=== PATIENT | male | born 1980 | race Caucasian/White ===

== ENCOUNTER 2018-02-19 13:15 | Day surgery (SDC) | payer BC ==
[~2018-02-19] VITALS: Ht 188 cm; Wt 93.4 kg
[~2018-02-19 13:15] MED LIST: FLONASE16 G1 BOTH NARES; PRINIVIL20 MG PO
[2018-02-19] MEDS ORDERED: NEXIUM20 MG PO (13:44)
[2018-02-19 13:53] VITALS: BP 129/82
[2018-02-19 18:55] VITALS: BP 130/84
[2018-02-19 19:45] VITALS: BP 132/81
== END 2018-02-19 19:54 | disposition home or self-care (01) ==
LOC: SDC 13:15
DX: M51.17 Intervertebral disc disorders with radiculopathy, lumbosacral region (principal); I10 Essential (primary) hypertension; K21.9 Gastro-esophageal reflux disease without esophagitis; Z88.1 Allergy status to other antibiotic agents
CPT/HCPCS: 72020; 76000; J0131; J0690; J1100; J1170; J2250; J2405; J2710; J2930; J3010; J7643; S0020